=== PATIENT | female | born 1970 | race Caucasian/White ===

== ENCOUNTER 2019-02-23 05:54 | Day surgery (SDC) | payer OTHER ==
[2019-02-22 10:41] VITALS: BMI 35.1
--- NOTE | 2019-02-22 17:11 | HP ---
HISTORY OF PRESENT ILLNESS: Ms. Mary presents today for evaluation of lower back pain that has, over time, started to involve claudication symptoms as well as radiating leg pains to the anterior and posterior thighs as well as lower leg. She reports significant numbness to posterior calves and soles of her feet. She has not treated this in any significant way other than therapy and medications. She brings an MRI, does reveal severe bilateral foraminal stenosis at L4-5 and severe central canal stenosis at L3-4 presentation. She denies weakness, but does admit that she cannot walk even short distances. REVIEW OF SYSTEMS: The patient denies fever, chills, weight loss, night sweats, or loss of energy. Denies indigestion, vomiting, or black stools. Denies burning with urination or blood in urination. She does report pain in her legs and lower back. Reports numbness and tingling in the legs. PHYSICAL EXAMINATION: GENERAL: The patient is alert and oriented x3. NEUROLOGIC: Gait is mildly antalgic. Lower extremity motor exam is normal. Reflexes are equal and present bilaterally at the patellar tendon bilaterally. PAST MEDICAL HISTORY: Significant for hypercholesterolemia, chronic pain syndrome, hypertension. CURRENT MEDICATIONS: 1. Tylenol No. 4. 2. Nortriptyline. 3. Tizanidine. 4. Losartan. 5. Hydrochlorothiazide. ALLERGIES: NO KNOWN DRUG ALLERGIES. PAST SURGICAL HISTORY: Bilateral carpal tunnel, tonsillectomy. ASSESSMENT: Lumbar spinal stenosis with neurogenic claudication. PLAN: Dr. Choi met with the patient, reviewed imaging, advocated for L3-L5 decompression. He explained to the patient the risks, benefits, and alternatives of the procedure. The patient expressed understanding and elected to move forward with surgery as discussed. I do believe the patient is mentally competent and capable of making medical decisions for herself. We will move forward with surgery as planned. Job ID: [id number]
[2019-02-23] MEDS ORDERED: Bupivacaine HCl 0.5%/Epinephrine 1:200,000/PF 30 ml Vial ONE (06:18)
[2019-02-23] MEDS ORDERED: Thrombin 5000 UNITS/5 ML VIAL ONE (06:18)
[2019-02-23] MEDS ORDERED: Midazolam HCl 2 mg/2 ml Vial ONE (06:42)
[2019-02-23] MEDS ORDERED: Fentanyl 100 MCG/2 ML VIAL ONE ×2 (07:00→08:48)
[2019-02-23] MEDS ORDERED: HYDROcodone/Acetaminophen 5/325 mg Tablet ONE (10:17)
--- NOTE | 2019-02-23 10:49 | OP ---
DATE OF PROCEDURE: 02/23/2019 [facility] REPAIR PERSON: Julio Gore PA-C. INDICATION: Pain. DIAGNOSIS: Lumbar stenosis with lumbar neurogenic claudication. PROCEDURES: L3 through L5 lumbar decompression. ANESTHESIA: General. DESCRIPTION OF PROCEDURE: The patient was brought into the operating room and placed under general anesthesia. She was flipped from the supine to prone position on the operating room table. A linear incision was planned spanning L3 through L5. After prepping and draping and after an appropriate preoperative pause, the incision was created. The soft tissues were swept away from midline. Self-retaining retractors were placed in the wound for optimal exposure. After confirming the appropriate level with C-arm fluoroscopy, the spinous processes of L4, L5, and the inferior half of L3 were removed. A high-speed cutting drill bit as well as 2, 3, and 4 mm Kerrisons used to perform a laminectomy spanning the midportion of L3 through the top of S1 to include the lateral recesses and the superior articulating facet region of S1 bilaterally. After decompressing these segments, the wound was irrigated. Hemostasis was maintained throughout. The wound was then closed in anatomic layers and a pressure dressing was applied. There were no known procedural complications. Job ID: [id number]
[2019-02-23] MEDS ORDERED: PROPOFOL 200 MG/20 ML VIAL ONE (13:08)
[2019-02-23] MEDS ORDERED: Ketorolac Tromethamine 30 MG/ML VIAL ONE (13:08)
[2019-02-23] MEDS ORDERED: Rocuronium Bromide 10 MG/ML (10ML VIAL) ONE (13:08)
[2019-02-23] MEDS ORDERED: Glycopyrrolate 0.2 MG/ML 5 ML SYRINGE ONE (13:08)
[2019-02-23] MEDS ORDERED: Ondansetron PF 4 MG/2 ML Vial ONE (13:08)
[2019-02-23] MEDS ORDERED: PROVENTIL INHALER 6.7 G (200 INHALATIONS) ONE (13:08)
[2019-02-23] MEDS ORDERED: Dexamethasone 20 MG/5 ML VIAL ONE (13:08)
[2019-02-23] MEDS ORDERED: Lidocaine 1% PF 5 ML VIAL ONE (13:08)
== END 2019-02-23 11:10 | disposition home or self-care (01) ==
LOC: SDC 05:54
PROVIDERS: ATTEND Neurological Surgery
PROC: 01NB0ZZ Release Lumbar Nerve, Open Approach (ICD-10-PCS; principal; 2019-02-23)
DX: M48.062 Spinal stenosis, lumbar region with neurogenic claudication (principal); M54.16 Radiculopathy, lumbar region; E78.00 Pure hypercholesterolemia, unspecified; G89.4 Chronic pain syndrome; I10 Essential (primary) hypertension; Z79.1 Long term (current) use of non-steroidal anti-inflammatories (NSAID); Z79.51 Long term (current) use of inhaled steroids; Z79.899 Other long term (current) drug therapy
CPT/HCPCS: 76000; 93005; 93010; J0670; J0690; J2250; J3010

== ENCOUNTER 2025-06-19 13:59 | Inpatient (IN) | payer BC ==
[~2025-06-19 13:59] MED LIST: Iopamidol-370 76% 500 ML MDV (1 ML CHARGE) ONE
[2025-06-19 16:23] LABS: #Basophils 0.05 10x3/uL (0.0-0.2); #Eosinophils Less than 0.03 10x3/uL (0.0-0.7); #Monocytes 0.26 10x3/uL (0.11-0.59); #Neutrophils 16.37 10x3/uL (1.40-6.50); %Basophils 0.3 % (0.0-1.0); %Eosinophils 0.1 % (0.0-10.0); %Lymphocytes 6.0 % (21.0-51.0); %Monocytes 1.5 % (0.0-10.0); %Neutrophils 91.4 % (42.0-75.0); Hematocrit 27.7 % (36.0-47.0); Hemoglobin 9.5 g/dL (12.0-16.0); Mean Corpuscular Hemoglobin 33.1 pg (27.0-31.0); Mean Corpuscular Volume 96.5 fL (78.0-98.0); Platelet Count 511 10x3/uL (130-400); Red Blood Cell (RBC) Count 2.87 mill/uL (4.20-5.40); White Blood Cell (WBC) Count 17.89 10x3/uL (4.8-10.8)
[2025-06-19 16:41] LABS: ALT (SGPT) 10 U/L (Less than 34); AST (SGOT) 25 U/L (11-34); Albumin 3.3 g/dL (3.1-4.5); Alkaline Phosphatase 46 U/L (40-110); Anion Gap 17 mmol/L (10-20); BUN (Urea Nitrogen) 28 mg/dL (9.8-20.1); Bilirubin, Total 0.2 mg/dL (0.3-1.2); Calc. Creatinine Clearance 0 mL/min (70-130); Calcium 9.6 mg/dL (7.8-10.44); Carbon Dioxide 25 mmol/L (22-29); Chloride 103 mmol/L (98-107); Globulin 4.5 g/dL (2.4-3.5); Glucose 135 mg/dL (70-105); Potassium 3.4 mmol/L (3.5-5.1); Sodium 142 mmol/L (136-145)
[2025-06-19 18:29] LABS: Bacteria/HPF None Seen HPF (None Seen); CAUTI Indications for Culture Pelvic or flank pain; Glucose, Urine (Dipstick) Normal (Negative); Leukocyte Negative Leu/uL (Negative); Protein, Urine (Dipstick) 30 mg/dL (Neg-Trace); RBC/HPF 0-3 HPF (0-3); Specific Gravity, Urine 1.050 (1.002-1.036); WBC/HPF 0-3 HPF (0-3)
[2025-06-19 18:30] LABS: Urine Culture Reflex No No
[2025-06-19 20:22] VITALS: BMI 28.6
[2025-06-19] MEDS ORDERED: Acetaminophen 325 MG TAB PO PRN (20:37)
[2025-06-19] MEDS ORDERED: Ondansetron PF 4 MG/2 ML Vial IVP PRN (20:37)
[2025-06-19] MEDS ORDERED: oxyCODONE 5 MG TAB PO PRN (20:42)
[2025-06-19] MEDS: Ketorolac Tromethamine 30 MG (1 mL) VIAL IVP SCH ×2 (21:10→23:08)
[2025-06-19] MEDS: Famotidine 20 MG TAB PO SCH (21:11)
[2025-06-19] MEDS: Losartan 25 MG TAB PO SCH (21:20)
[2025-06-19] MEDS: Melatonin 3 MG TAB PO PRN (21:20)
[2025-06-20] MEDS: oxyCODONE 5 MG TAB PO PRN (01:49)
[2025-06-20 05:31] LABS: #Basophils 0.05 10x3/uL (0.0-0.2); #Eosinophils Less than 0.03 10x3/uL (0.0-0.7); #Monocytes 1.11 10x3/uL (0.11-0.59); #Neutrophils 11.93 10x3/uL (1.40-6.50); %Basophils 0.3 % (0.0-1.0); %Eosinophils 0.1 % (0.0-10.0); %Lymphocytes 17.6 % (21.0-51.0); %Monocytes 6.9 % (0.0-10.0); %Neutrophils 74.5 % (42.0-75.0); Hematocrit 24.1 % (36.0-47.0); Hemoglobin 8.0 g/dL (12.0-16.0); Mean Corpuscular Hemoglobin 32.7 pg (27.0-31.0); Mean Corpuscular Volume 98.4 fL (78.0-98.0); Platelet Count 419 10x3/uL (130-400); Red Blood Cell (RBC) Count 2.45 mill/uL (4.20-5.40); White Blood Cell (WBC) Count 16.02 10x3/uL (4.8-10.8)
[2025-06-20 06:06] LABS: Anion Gap 15 mmol/L (10-20); BUN (Urea Nitrogen) 23 mg/dL (9.8-20.1); Calc. Creatinine Clearance 177 mL/min (70-130); Calcium 8.5 mg/dL (7.8-10.44); Carbon Dioxide 27 mmol/L (22-29); Chloride 104 mmol/L (98-107); Glucose 94 mg/dL (70-105); Potassium 3.2 mmol/L (3.5-5.1); Sodium 143 mmol/L (136-145)
[2025-06-20] MEDS: Losartan 25 MG TAB PO SCH (09:33)
[2025-06-20] MEDS: Enoxaparin 40 MG (0.4 mL) SYRINGE SC SCH (09:34)
[2025-06-20] MEDS: Chlorhexidine Gluconate 15 ML UDCUP SSP SCH (09:35)
[2025-06-20 14:18] VITALS: BMI 28.6
[2025-06-20] MEDS: Senokot S 8.6-50 MG TAB PO PRN (20:00)
[2025-06-21 06:18] LABS: #Basophils 0.07 10x3/uL (0.0-0.2); #Eosinophils 0.10 10x3/uL (0.0-0.7); #Monocytes 0.94 10x3/uL (0.11-0.59); #Neutrophils 11.62 10x3/uL (1.40-6.50); %Basophils 0.4 % (0.0-1.0); %Eosinophils 0.6 % (0.0-10.0); %Lymphocytes 23.6 % (21.0-51.0); %Monocytes 5.6 % (0.0-10.0); %Neutrophils 69.3 % (42.0-75.0); Hematocrit 23.3 % (36.0-47.0); Hemoglobin 7.7 g/dL (12.0-16.0); Mean Corpuscular Hemoglobin 33.0 pg (27.0-31.0); Mean Corpuscular Volume 100.0 fL (78.0-98.0); Platelet Count 446 10x3/uL (130-400); Red Blood Cell (RBC) Count 2.33 mill/uL (4.20-5.40); White Blood Cell (WBC) Count 16.78 10x3/uL (4.8-10.8)
[2025-06-21 07:15] LABS: Anion Gap 16 mmol/L (10-20); BUN (Urea Nitrogen) 20 mg/dL (9.8-20.1); Calc. Creatinine Clearance 170 mL/min (70-130); Calcium 8.5 mg/dL (7.8-10.44); Carbon Dioxide 28 mmol/L (22-29); Chloride 104 mmol/L (98-107); Glucose 94 mg/dL (70-105); Potassium 3.8 mmol/L (3.5-5.1); Sodium 144 mmol/L (136-145)
[2025-06-21] MEDS ORDERED: Lidocaine 1% PF 5 ML VIAL ONE (09:50)
[2025-06-21] MEDS ORDERED: Sodium Bicarbonate 2.5 MEQ/5 ML SDV ONE (09:50)
[2025-06-21 14:57] LABS: Hematocrit 24.8 % (36.0-47.0); Hemoglobin 8.0 g/dL (12.0-16.0)
[2025-06-21] MEDS: Penicillin G Potassium 4,000,000 UNITS in Syringe 0 ML IVPB SCH (16:20)
[2025-06-21] MEDS: Penicillin G Potassium 4 MILL.UNITS in Sodium Chloride 0.9% 50 ML IVPB SCH (17:42)
[2025-06-22] MEDS: Ketorolac Tromethamine 30 MG (1 mL) VIAL IVP SCH ×2 (00:59→08:33)
[2025-06-22] MEDS: Pantoprazole 40 MG DR.TAB PO SCH (08:38)
[2025-06-22 08:55] LABS: #Basophils 0.05 10x3/uL (0.0-0.2); #Eosinophils 0.12 10x3/uL (0.0-0.7); #Monocytes 0.89 10x3/uL (0.11-0.59); #Neutrophils 8.88 10x3/uL (1.40-6.50); %Basophils 0.4 % (0.0-1.0); %Eosinophils 0.9 % (0.0-10.0); %Lymphocytes 25.0 % (21.0-51.0); %Monocytes 6.7 % (0.0-10.0); %Neutrophils 66.3 % (42.0-75.0); Hematocrit 25.7 % (36.0-47.0); Hemoglobin 8.3 g/dL (12.0-16.0); Mean Corpuscular Hemoglobin 32.8 pg (27.0-31.0); Mean Corpuscular Volume 101.6 fL (78.0-98.0); Platelet Count 527 10x3/uL (130-400); Red Blood Cell (RBC) Count 2.53 mill/uL (4.20-5.40); White Blood Cell (WBC) Count 13.38 10x3/uL (4.8-10.8)
[2025-06-22 09:09] LABS: Anion Gap 13 mmol/L (10-20); BUN (Urea Nitrogen) 13 mg/dL (9.8-20.1); Calc. Creatinine Clearance 192 mL/min (70-130); Calcium 9.1 mg/dL (7.8-10.44); Carbon Dioxide 29 mmol/L (22-29); Chloride 105 mmol/L (98-107); Glucose 106 mg/dL (70-105); Potassium 4.5 mmol/L (3.5-5.1); Sodium 142 mmol/L (136-145)
[2025-06-22] MEDS: oxyCODONE 5 MG TAB PO PRN (14:26)
[2025-06-22 18:28] VITALS: BP 118/61; TEMP 98.2
[2025-06-22] MEDS ORDERED: Mupirocin 1 GM TUBE NASAL DECOLONIZATION NASAL SCH (21:00)
== END 2025-06-22 18:23 | disposition home or self-care (01) | DRG 159 ==
LOC: ERS 13:59 → T4-A 18:55
PROVIDERS: ADMIT Family Medicine; ATTEND Internal Medicine
PROC: 02HV33Z Insertion of Infusion Device into Superior Vena Cava, Percutaneous Approach (ICD-10-PCS; principal; 2025-06-21)
PROC: B5181ZA Fluoroscopy of Superior Vena Cava using Low Osmolar Contrast, Guidance (ICD-10-PCS; 2025-06-21)
DX: M27.2 Inflammatory conditions of jaws (principal); I10 Essential (primary) hypertension; R73.03 Prediabetes; F15.10 Other stimulant abuse, uncomplicated; F17.210 Nicotine dependence, cigarettes, uncomplicated; Z79.899 Other long term (current) drug therapy
CPT/HCPCS: 36415; 36573; 70488; 71045; 80048; 80053; 81001; 83605; 85025; 86141; 87040; 87086; 93005; 96365; 96366; 96375; 96376; C1751; J0295; J1650; J1885; J2270; J2540; J2543; Q9967

== ENCOUNTER 2025-06-28 16:26 | Emergency (ER) | payer BC | END 2025-06-28 17:45 | disposition home or self-care (01) | LOC: ERS 16:26 | DX: T82.594A Other mechanical complication of infusion catheter, initial encounter (principal); I10 Essential (primary) hypertension; F17.210 Nicotine dependence, cigarettes, uncomplicated | CPT/HCPCS: 99282 ==